=== PATIENT | male | born 1985 | race Caucasian/White ===

== ENCOUNTER 2020-03-15 13:37 | Emergency (ER) | payer OTHER ==
[~2020-03-15] VITALS: Ht 190.5 cm; Wt 115.0 kg
[2020-03-15 13:56] VITALS: BP 132/76
--- NOTE | 2020-03-15 14:02 | NUR ---
PER DR PERES PT CAN LEAVE POST [employer] COMP PAPERWORK. PT SEEN LEAVING WITH DR PERES
== END 2020-03-15 14:07 | disposition home or self-care (01) ==
LOC: ED 14:00
DX: Z77.21 Contact with and (suspected) exposure to potentially hazardous body fluids (principal)
CPT/HCPCS: 99281